=== PATIENT | male | born 1940 | race Caucasian/White ===

== ENCOUNTER 2018-01-03 13:55 | Inpatient (IN) | payer MEDICARE ==
[~2018-01-03] VITALS: Ht 167.6 cm; Wt 90.0 kg
[2018-01-03] VITALS (7 sets, daily range): BP systolic 130–198; BP diastolic 72–88; PULSE 68–101; RESP 16–20; TEMP 97.8–102.1; O2SAT 94–99
[~2018-01-03 13:55] MED LIST: CEPH500C3 PO; LISI-363 PO; LORT5TAB PO; [UNRECOGNIZED DRUG - REMARK] PO
[2018-01-03] MEDS ORDERED: LISI-515 PO (15:00)
[2018-01-03] MEDS ORDERED: TAMS5CAP PO (15:00)
[2018-01-03] MEDS ORDERED: ALLO100T PO (15:00)
[2018-01-03] MEDS ORDERED: MORPHINE SULFATE 4 MG/ML INJ IV PUSH ONE (15:15)
[2018-01-03] MEDS ORDERED: METOCLOPRAMIDE HCL 10 MG/2 ML VIAL IV PUSH ONE (15:15)
[2018-01-03] MEDS ORDERED: SODIUM CHLOR 0.9% 1000 ML INJ 1,000 ML IV ONE (15:15)
[2018-01-03 15:34] LABS: BASOPHIL # 0.1 TH/MM3 (0-0.2); BASOPHIL % 0.9 % (0.0-2.0); EOSINOPHIL # 0.2 TH/MM3 (0-0.4); EOSINOPHIL % 1.3 % (0.0-4.0); HEMATOCRIT 41.5 % (39.0-51.0); HEMOGLOBIN 13.8 GM/DL (13.0-17.0); LYMPHOCYTE # 1.6 TH/MM3 (1.0-4.8); MEAN CELL VOLUME 90.3 FL (80.0-100.0); MEAN CORPUSCULAR HEMOGLOBIN 30.1 PG (27.0-34.0); MEAN CORPUSCULAR HGB CONC 33.3 % (32.0-36.0); MEAN PLATELET VOLUME 7.9 FL (7.0-11.0); MONO % 5.9 % (0.0-8.0); MONOCYTE # 0.9 TH/MM3 (0-0.9); NEUT % 80.9 % (16.0-70.0); PLATELET COUNT 253 TH/MM3 (150-450); RED CELL DISTRIBUTION WIDTH 13.5 % (11.6-17.2); WHITE BLOOD COUNT 14.8 TH/MM3 (4.0-11.0)
[2018-01-03 16:05] LABS: ALBUMIN 3.5 GM/DL (3.4-5.0); AST (GOT) 12 U/L (15-37); BICARBONATE 24.1 MEQ/L (21.0-32.0); BLOOD UREA NITROGEN 19 MG/DL (7-18); CALCIUM 9.6 MG/DL (8.5-10.1); CHLORIDE 105 MEQ/L (98-107); GLOMERULAR FILTRATION RATE 53 ML/MIN (>89); GLUCOSE,RANDOM 112 MG/DL (74-106); SODIUM (NA) 139 MEQ/L (136-145)
--- NOTE | 2018-01-03 16:07 | PD ---
HPI Chief Complaint: GI Complaint Time Seen by Provider: 14:55 Travel History International Travel<30 days: No Contact w/Intl Traveler<30days: No Traveled to known affect area: No History of Present Illness HPI 77-year-old male the presents to the ED for evaluation of acute pancreatitis. Apparently patient was followed by Dr. Belcher who is his primary care doctor and did a CT and lab work did show acute pancreatitis and the doctor apparently told him to come here. Per patient he was just told over the phone to come here to get evaluated for his acute pancreatitis. The patient's symptoms started on Saturday. Per patient he has feeling of fullness when he eats and feels like his cannot throw up. He has has thrown up a couple times. Per patient he did throw up after having a CAT scan. Per patient he has pain on the epigastric area and the pain is 4 out of 10 but gets to be more significant. He has never had anything like this before. Still has his gallbladder. No other medical issues. Pain does not radiate. States mainly on the epigastric area. He does not really know what pancreatitis is an states that he has never had it before. He denies drinking alcohol. No other medical issues. No medication changes recently. He did not come with any blood work but does state that he had a CT scan done at [facility] today. [facility] Past Medical History High Cholesterol: Yes Diminished Hearing: No Gastrointestinal Disorders: Yes Gout: Yes Genitourinary: Yes Hypertension: Yes Medical other: Yes Immunizations Current: Yes Tetanus Vaccination: > 5 Years Influenza Vaccination: Yes Past Surgical History Abdominal Surgery: Yes (hernia) Other Surgery: Yes (bilateral inguinal hernia repair) Social History Alcohol Use: Yes (rare) Tobacco Use: No (quit 40 years ago) Substance Use: No Allergies-Medications (Allergen,Severity, Reaction): Coded Allergies: enalaprilat (Verified Allergy, Intermediate, hives, 01/03/18) Reported Meds & Prescriptions Reported Meds & Active Scripts Active Reported Amlodipine (Amlodipine Besylate) 5 Mg Tab 5 Mg PO DAILY Flomax (Tamsulosin HCl) 0.4 Mg Cap 0.4 Mg PO HS Lisinopril 20 Mg Tab 20 Mg PO DAILY Allopurinol 100 Mg Tab 100 Mg PO BID PRN Review of Systems Except as stated in HPI: all other systems reviewed are Neg Physical Exam Narrative GENERAL: SKIN: Warm and dry. HEAD: Atraumatic. Normocephalic. EYES: Pupils equal and round. No scleral icterus. No injection or drainage. ENT: No nasal bleeding or discharge. Mucous membranes pink and moist. NECK: Trachea midline. No JVD. CARDIOVASCULAR: Regular rate and rhythm. RESPIRATORY: No accessory muscle use. Clear to auscultation. Breath sounds equal bilaterally. GASTROINTESTINAL: Abdomen soft, very tender in the epigastric area, nondistended. Hepatic and splenic margins not palpable. MUSCULOSKELETAL: Extremities without clubbing, cyanosis, or edema. No obvious deformities. Full range of motion of the upper and lower extremity bilaterally. 2+ pulses bilaterally. NEUROLOGICAL: Awake and alert. No obvious cranial nerve deficits. Motor grossly within normal limits. Five out of 5 muscle strength in the arms and legs. Normal speech. PSYCHIATRIC: Appropriate mood and affect; insight and judgment normal. Data Data Last Documented VS Vital Signs Date Time Temp Pulse Resp B/P (MAP) Pulse Ox O2 Delivery O2 Flow Rate FiO2 01/03/18 15:02 16 01/03/18 14:09 98.2 91 165/72 (103) 97 Orders Orders Complete Blood Count With Diff (01/03/18 15:09) Comprehensive Metabolic Panel (01/03/18 15:09) Lipase (01/03/18 15:09) Iv Access Insert/Monitor (01/03/18 15:09) Sodium Chlor 0.9% 1000 Ml Inj (Ns 1000 M (01/03/18 15:15) Metoclopramide Inj (Reglan Inj) (01/03/18 15:15) Morphine Inj (Morphine Inj) (01/03/18 15:15) Admit To Inpatient (01/03/18 ) Code Status (01/03/18 16:36) Vital Signs (Adult) Q4H (01/03/18 16:36) Activity Oob Ad Sylwia (01/03/18 16:36) Intake + Output DANA.QSHIFT (01/03/18 16:36) Diet Npo (01/03/18 Dinner) Sodium Chloride 0.9% Flush (Ns Flush) (01/03/18 16:45) Sodium Chloride 0.9% Flush (Ns Flush) (01/03/18 21:00) Morphine Inj (Morphine Inj) (01/03/18 16:45) Lipase (01/04/18 06:00) Basic Metabolic Panel (Bmp) (01/04/18 06:00) Calcium, Ionized (01/03/18 16:36) Triglycerides (01/03/18 16:36) C-Reactive Protein (Crp) (01/03/18 16:36) Hepatic Functional Panel (01/04/18 06:00) Scd Bilateral/Knee High DANA.BID (01/03/18 16:36) Inpatient Certification (01/03/18 ) Mri Mrcp W & W/O Contrast (01/03/18 ) Consult Gastroenterology (01/03/18 ) 1/2 Ns + Kcl 20 Meq Inj (1/2 Ns + Kcl 20 (01/03/18 17:00) Hydralazine Inj (Apresoline Inj) (01/03/18 16:45) Burlap Spreader / Telemetry DANA.Q8H (01/03/18 16:43) Ondansetron Odt (Zofran Odt) (01/03/18 16:45) (Hub Use Only)Inp Phy Cons/Ref (01/03/18 ) Bedside Glucose DANA.CSUGAR (01/03/18 16:56) Blood Glucose Goal (Criteria) (01/03/18 16:56) Hypoglycemia 70 Mg/Dl Or < (01/03/18 16:56) Notify Dr: Other (01/03/18 16:56) Dextrose 50% In Adrian (Vial) Inj (D50w (Vi (01/03/18 17:00) Glucagon Inj (Glucagon Inj) (01/03/18 17:00) Insulin Aspart Supplemtl Scale (Novolog (01/03/18 17:00) Admit Order (Ed Use Only) (01/03/18 16:57) Labs Laboratory Tests Test 01/03/18 15:10 White Blood Count 14.8 TH/MM3 Red Blood Count 4.60 MIL/MM3 Hemoglobin 13.8 GM/DL Hematocrit 41.5 % Mean Corpuscular Volume 90.3 FL Mean Corpuscular Hemoglobin 30.1 PG Mean Corpuscular Hemoglobin Concent 33.3 % Red Cell Distribution Width 13.5 % Platelet Count 253 TH/MM3 Mean Platelet Volume 7.9 FL Neutrophils (%) (Auto) 80.9 % Lymphocytes (%) (Auto) 11.0 % Monocytes (%) (Auto) 5.9 % Eosinophils (%) (Auto) 1.3 % Basophils (%) (Auto) 0.9 % Neutrophils # (Auto) 12.0 TH/MM3 Lymphocytes # (Auto) 1.6 TH/MM3 Monocytes # (Auto) 0.9 TH/MM3 Eosinophils # (Auto) 0.2 TH/MM3 Basophils # (Auto) 0.1 TH/MM3 CBC Comment DIFF FINAL Differential Comment Blood Urea Nitrogen 19 MG/DL Creatinine 1.30 MG/DL Random Glucose 112 MG/DL Total Protein 8.2 GM/DL Albumin 3.5 GM/DL Calcium Level 9.6 MG/DL Alkaline Phosphatase 65 U/L Aspartate Amino Transf (AST/SGOT) 12 U/L Alanine Aminotransferase (ALT/SGPT) 23 U/L Total Bilirubin 0.5 MG/DL Sodium Level 139 MEQ/L Potassium Level 4.4 MEQ/L Chloride Level 105 MEQ/L Carbon Dioxide Level 24.1 MEQ/L Anion Gap 10 MEQ/L Estimat Glomerular Filtration Rate 53 ML/MIN Lipase 148 U/L MDM Medical Decision Making Medical Screen Exam Complete: Yes Emergency Medical Condition: Yes Medical Record Reviewed: Yes Interpretation(s) CBC Diagram 01/03/18 15:10 BMP Diagram 01/03/18 15:10 Total Protein 8.2, Albumin 3.5, Calcium Level 9.6, Alkaline Phosphatase 65, Aspartate Amino Transf (AST/SGOT) 12 L, Alanine Aminotransferase (ALT/SGPT) 23, Total Bilirubin 0.5 lipase WNL Differential Diagnosis Acute pancreatitis versus cholecystitis versus acute abdomen versus dehydration Narrative Course 77-year-old male the presents to the ED for evaluation of acute pancreatitis. Patient was properly examined and was found to have signs and symptoms consistent appears to be the medical records of the patient was able to pull out the CT scan report. Apparently the CT did show cholelithiasis with what appears to be acute pancreatitis involving the tail of the pancreas with no sign of hemorrhage or cysts. Patient is very tender to touch in the epigastric area and tells me that he cannot really keep much stuff down although he tries. He has never had anything like this before. This time because I do not have access to the [facility] blood work I will do labs to see how bad his pancreatitis is. I suspect the patient likely has back pancreatitis and will require admission. Patient will start IV fluids, pain medications and antiemetics. Labs and imaging showed elevated white blood cell count. Otherwise unremarkable. CT did show gallstones. There is concern that this might be gallstone related pancreatitis and can require further workup including surgery for the gallbladder removal. Case discussed with Dr. Bradshaw who agrees to admission. Patient was admitted. Patient agrees with plan. Diagnosis Primary Impression: Pancreatitis, acute Qualified Codes: K85.10 - Biliary acute pancreatitis without necrosis or infection Additional Impression: Abdominal pain Qualified Codes: R10.13 - Epigastric pain Admitting Information Admitting Physician Requests: Admit Jonas Mendez Jan 03, 2018 16:07
[2018-01-03 16:08] LABS: ALKALINE PHOSPHATASE 65 U/L (45-117); ALT (GPT) 23 U/L (12-78); TOTAL BILIRUBIN ADULT 0.5 MG/DL (0.2-1.0); TOTAL PROTEIN 8.2 GM/DL (6.4-8.2)
[2018-01-03] MEDS ORDERED: ONDANSETRON ODT 4 MG TAB PO PRN (16:45)
[2018-01-03] MEDS ORDERED: MORPHINE SULFATE 8 MG/ML INJ IV PUSH PRN (16:45)
[2018-01-03] MEDS ORDERED: SODIUM CHLORIDE 0.9% FLUSH 10 ML FLUSH IV FLUSH PRN (16:45)
[2018-01-03] MEDS ORDERED: hydrALAZINE HCL 20 MG/ML VIAL IV PUSH PRN (16:45)
[2018-01-03] MEDS ORDERED: AMLO5TAB2 PO (16:51)
--- NOTE | 2018-01-03 16:55 | HHI.HP ---
HPI Service [facility] Hospitalists Primary Care Physician Tray Belcher MD Admission Diagnosis Chief Complaint: Abdominal pain Travel History International Travel<30 Days: No Contact w/Intl Traveler <30 Da: No Traveled to Known Affected Are: No History of Present Illness This is a 77-year-old male patient with past medical history which includes BPH , cholelithiasis without obstruction, chronic kidney disease stage II, diabetes mellitus, diverticulosis, hypertension, hyperlipidemia and lumbar radiculopathy. Patient initially presented to his PCP office with complaints of mid abdominal pain 3 days. The abdominal pain was described as a dull ache and occasional cramping. Patient had associated nausea and occasional vomiting only after eating but no diarrhea. Patient also reports associated fever up to 101.6 at home. Patient was sent to [facility] for outpatient CT scan of the abdomen/pelvis which per PCPs note revealed acute pancreatitis of the tail the pancreas and also cholelithiasis. Patient was then instructed to proceed to the emergency department for further evaluation and treatment. Patient denies EtOH use. Patient denies chest pain or shortness of breath. Review of Systems Constitutional: COMPLAINS OF: Fever, Change in appetite (Decreased appetite) Respiratory: DENIES: Cough, Sputum production, Shortness of breath Cardiovascular: DENIES: Chest pain, Palpitations, Lower Extremity Edema Gastrointestinal: COMPLAINS OF: Abdominal pain, Nausea, Vomiting, DENIES: Diarrhea Neurologic: DENIES: Abnormal gait, Headache, Localized weakness Psychiatric: DENIES: Anxiety, Confusion, Depression Past Family Social History Past Medical History BPH, cholelithiasis without obstruction, chronic kidney disease stage II, diabetes mellitus, diverticulosis, hypertension, hyperlipidemia and lumbar radiculopathy Past Surgical History Colonoscopy, bilateral inguinal hernia repair, vasectomy, tonsillectomy with adenoidectomy,paravertebral nerve block Reported Medications Flomax (Tamsulosin HCl) 0.4 Mg Cap 0.4 Mg PO HS Lisinopril 20 Mg Tab 20 Mg PO DAILY Allopurinol 100 Mg Tab 100 Mg PO BID PRN Allergies: Coded Allergies: enalaprilat (Verified Allergy, Intermediate, hives, 01/03/18) Family History Reviewed and noncontributory Social History Denies EtOH use Former smoker Physical Exam Vital Signs Vital Signs Date Time Temp Pulse Resp B/P (MAP) Pulse Ox O2 Delivery O2 Flow Rate FiO2 01/03/18 15:02 16 01/03/18 14:09 98.2 91 16 165/72 (103 97 Physical Exam GENERAL: This is a well-nourished, well-developed patient, in no apparent distress. SKIN: No rashes, ecchymoses or lesions. Cool and dry. HEAD: Atraumatic. Normocephalic. No temporal or scalp tenderness. EYES: Extraocular motions intact. No scleral icterus. No injection or drainage. CARDIOVASCULAR: Regular rate and rhythm w RESPIRATORY: Clear to auscultation. Breath sounds equal bilaterally. GASTROINTESTINAL: Abdomen soft, tender to palpation LUQ, nondistended. MUSCULOSKELETAL: Extremities without clubbing, cyanosis, or edema. No joint tenderness, effusion, or edema noted. No calf tenderness. Negative Homans sign bilaterally. NEUROLOGICAL: Awake and alert. No focal deficits noted. Motor and sensory grossly within normal limits. Five out of 5 muscle strength in all muscle groups. Normal speech. Laboratory Laboratory Tests Test 01/03/18 15:10 White Blood Count 14.8 Red Blood Count 4.60 Hemoglobin 13.8 Hematocrit 41.5 Mean Corpuscular Volume 90.3 Mean Corpuscular Hemoglobin 30.1 Mean Corpuscular Hemoglobin Concent 33.3 Red Cell Distribution Width 13.5 Platelet Count 253 Mean Platelet Volume 7.9 Neutrophils (%) (Auto) 80.9 Lymphocytes (%) (Auto) 11.0 Monocytes (%) (Auto) 5.9 Eosinophils (%) (Auto) 1.3 Basophils (%) (Auto) 0.9 Neutrophils # (Auto) 12.0 Lymphocytes # (Auto) 1.6 Monocytes # (Auto) 0.9 Eosinophils # (Auto) 0.2 Basophils # (Auto) 0.1 CBC Comment DIFF FINAL Differential Comment Blood Urea Nitrogen 19 Creatinine 1.30 Random Glucose 112 Total Protein 8.2 Albumin 3.5 Calcium Level 9.6 Alkaline Phosphatase 65 Aspartate Amino Transf (AST/SGOT) 12 Alanine Aminotransferase (ALT/SGPT) 23 Total Bilirubin 0.5 Sodium Level 139 Potassium Level 4.4 Chloride Level 105 Carbon Dioxide Level 24.1 Anion Gap 10 Estimat Glomerular Filtration Rate 53 Lipase 148 Result Diagram: 01/03/18 1510 01/03/18 1510 Imaging Last Impressions Chest X-Ray 01/03/18 0000 Signed Impressions: CONCLUSION: Minimal atelectasis or consolidation at the lateral left base. Questionable density in the medial right upper lung. This could be further eval uated with a CT examination the chest. Caprini VTE Risk Assessment Caprini VTE Risk Assessment: Mod/High Risk (score >= 2) Caprini Risk Assessment Model Point Value = 1 Point Value = 2 Point Value = 3 Point Value = 5 Age 41-60 Minor surgery BMI > 25 kg/m2 Swollen legs Varicose veins or History of unexplained or recurrent spontaneous Oral contraceptives or hormone replacement Sepsis (< 1 month) Serious lung disease, including pneumonia (< 1 month) Abnormal pulmonary function Acute myocardial infarction Congestive heart failure (< 1 month) History of inflammatory bowel disease Medical patient at bed rest Age 61-74 Arthroscopic surgery Major open surgery (> 45 min) Laparoscopic surgery (> 45 min) Malignancy Confined to bed (> 72 hours) Immobilizing plaster cast Central venous access Age >= 75 History of VTE Family history of VTE Factor V Leiden Prothrombin [id number] Lupus anticoagulant Anticardiolipin antibodies Elevated serum homocysteine Heparin-induced thrombocytopenia Other congenital or acquired thrombophilia Stroke (< 1 month) Elective arthroplasty Hip, pelvis, or leg fracture Acute spinal cord injury (< 1 month) Prophylaxis Regimen Total Risk Factor Score Risk Level Prophylaxis Regimen 0-1 Low Early ambulation 2 Moderate Order ONE of the following: *Sequential Compression Device (SCD) *Heparin 5000 units SQ BID 3-4 Higher Order ONE of the following medications: *Heparin 5000 units SQ TID *Enoxaparin/Lovenox 40 mg SQ daily (WT < 150 kg, CrCl > 30 mL/min) *Enoxaparin/Lovenox 30 mg SQ daily (WT < 150 kg, CrCl > 10-29 mL/min) *Enoxaparin/Lovenox 30 mg SQ BID (WT < 150 kg, CrCl > 30 mL/min) AND/OR *Sequential Compression Device (SCD) 5 or more Highest Order ONE of the following medications: *Heparin 5000 units SQ TID (Preferred with Epidurals) *Enoxaparin/Lovenox 40 mg SQ daily (WT < 150 kg, CrCl > 30 mL/min) *Enoxaparin/Lovenox 30 mg SQ daily (WT < 150 kg, CrCl > 10-29 mL/min) *Enoxaparin/Lovenox 30 mg SQ BID (WT < 150 kg, CrCl > 30 mL/min) AND *Sequential Compression Device (SCD) Assessment and Plan Problem List: (1) Abdominal pain ICD Codes: R10.9 - Unspecified abdominal pain Plan: Pancreatitis Cholelithiasis CT scan of the abdomen/pelvis which per PCPs note revealed acute pancreatitis of the tail the pancreas and also cholelithiasis. MRCP ordered and pending consult GI Patient NPO IV fluids Lipase 148 Creactive protein, Calcium pending Repeat Lipase, CMP and CBC in a.m. SCDs for DVT prophylaxis (2) Diabetes mellitus ICD Codes: E11.9 - Type 2 diabetes mellitus without complications Plan: Patient currently n.p.o. Accu-Cheks before meals at bedtime with sliding scale insulin coverage (3) Hypertension ICD Codes: I10 - Essential (primary) hypertension Plan: Patient NPO will hold patient's home amlodipine 5 mg p.o. daily, lisinopril 20 mg daily Monitor BP Hydralazine 10 mg IV as needed for HTN (4) BPH (benign prostatic hyperplasia) ICD Codes: N40.0 - Benign prostatic hyperplasia without lower urinary tract symptoms Plan: Patient NPO will hold patient's allopurinol 100 mg p.o. twice daily Assessment and Plan Patient examined. Assessment and plan formulated with Claudia Manjarrez PA-C. I agree with the above. Problem Qualifiers (1) Abdominal pain: Qualified Codes: R10.13 - Epigastric pain Claudia Manjarrez Jan 03, 2018 16:55 Riley Bradshaw DO Jan 04, 2018 15:52
[2018-01-03] MEDS: INSULIN ASPART SUPPLEMENTAL SCALE SQ SCH ×2 (17:00→21:00)
[2018-01-03] MEDS ORDERED: GLUCAGON 1 MG/ML VIAL OTHER PRN (17:00)
[2018-01-03] MEDS ORDERED: DEXTROSE 50% IN WATER 50 ML VIAL(D50) IV PUSH PRN (17:00)
[2018-01-03] MEDS: 1/2 NS + KCL 20 MEQ INJ 1,000 ML IV SCH (17:15)
[2018-01-03] MEDS ORDERED: METOPROLOL TARTRATE 5 MG/5 ML VIAL IV PUSH PRN (17:15)
[2018-01-03 17:42] LABS: BACTERIA, URINE OCC /hpf; BILIRUBIN, URINE NEG (NEG); BLOOD, URINE NEG (NEG); GLUCOSE,URINE NEG (NEG); HYALINE CAST, URINE 4 /lpf (RARE); KETONE, URINE TRACE mg/dL (NEG); MUCUS URINE FEW /lpf (OCC); NITRITE,URINE NEG (NEG); SQUAMOUS EPITHELIAL CELL URINE <1 /hpf (0-5); URINE COLOR YELLOW (YELLW/STRAW); URINE LEUKOCYTE ESTERASE TRACE (NEG)
--- NOTE | 2018-01-03 17:42 | RADRPT ---
EXAM DATE: 01/03/2018 5:24 PM EDT AGE/SEX: 77 years / Male INDICATIONS: Cough. Abdomen pain. CLINICAL DATA: This is the patient's initial encounter. Patient reports that signs and symptoms have been present for 1 day and indicates a pain score of 0/10. MEDICAL/SURGICAL HISTORY: None. None. COMPARISON: No prior exams available for comparison. FINDINGS: The heart size is normal. There is elevation of the left hemidiaphragm. There is minimal increased de nsity at the left lateral base. The lungs are focal consolidation. There is a questionable nodule see n in the medial right upper lobe. Confluent of vessels could have a similar appearance.. CONCLUSION: Minimal atelectasis or consolidation at the lateral left base. Questionable density in the medial right upper lung. This could be further evaluated with a CT examin ation the chest. Electronically signed by: Vito Pineda MD 01/03/2018 5:41 PM EDT
--- NOTE | 2018-01-03 18:02 | PD ---
Data Data Last Documented VS Vital Signs Date Time Temp Pulse Resp B/P (MAP) Pulse Ox O2 Delivery O2 Flow Rate FiO2 01/03/18 17:06 98.0 68 17 156/72 (100) 99 Room Air Orders Orders Complete Blood Count With Diff (01/03/18 15:09) Comprehensive Metabolic Panel (01/03/18 15:09) Lipase (01/03/18 15:09) Iv Access Insert/Monitor (01/03/18 15:09) Sodium Chlor 0.9% 1000 Ml Inj (Ns 1000 M (01/03/18 15:15) Metoclopramide Inj (Reglan Inj) (01/03/18 15:15) Morphine Inj (Morphine Inj) (01/03/18 15:15) Admit To Inpatient (01/03/18 ) Code Status (01/03/18 16:36) Vital Signs (Adult) Q4H (01/03/18 16:36) Activity Oob Ad Sylwia (01/03/18 16:36) Intake + Output DANA.QSHIFT (01/03/18 16:36) Diet Npo (01/03/18 Dinner) Sodium Chloride 0.9% Flush (Ns Flush) (01/03/18 16:45) Sodium Chloride 0.9% Flush (Ns Flush) (01/03/18 21:00) Morphine Inj (Morphine Inj) (01/03/18 16:45) Lipase (01/04/18 06:00) Basic Metabolic Panel (Bmp) (01/04/18 06:00) Calcium, Ionized (01/03/18 16:36) Triglycerides (01/03/18 16:36) C-Reactive Protein (Crp) (01/03/18 16:36) Hepatic Functional Panel (01/04/18 06:00) Scd Bilateral/Knee High DANA.BID (01/03/18 16:36) Inpatient Certification (01/03/18 ) Consult Gastroenterology (01/03/18 ) 1/2 Ns + Kcl 20 Meq Inj (1/2 Ns + Kcl 20 (01/03/18 17:00) Hydralazine Inj (Apresoline Inj) (01/03/18 16:45) Head Of Loss Prevention / Telemetry DANA.Q8H (01/03/18 16:43) Ondansetron Odt (Zofran Odt) (01/03/18 16:45) (Hub Use Only)Inp Phy Cons/Ref (01/03/18 ) Bedside Glucose DANA.CSUGAR (01/03/18 16:56) Blood Glucose Goal (Criteria) (01/03/18 16:56) Hypoglycemia 70 Mg/Dl Or < (01/03/18 16:56) Notify Dr: Other (01/03/18 16:56) Dextrose 50% In Adrian (Vial) Inj (D50w (Vi (01/03/18 17:00) Glucagon Inj (Glucagon Inj) (01/03/18 17:00) Insulin Aspart Supplemtl Scale (Novolog (01/03/18 17:00) Admit Order (Ed Use Only) (01/03/18 16:57) Metoprolol Tartrate Inj (Lopressor Inj) (01/03/18 17:15) Complete Blood Count With Diff (01/04/18 06:00) Urinalysis - C+S If Indicated (01/03/18 17:03) Chest, Single Ap (01/03/18 ) Mri Mrcp W/O Contrast (01/03/18 ) Labs Laboratory Tests Test 01/03/18 15:10 White Blood Count 14.8 TH/MM3 Red Blood Count 4.60 MIL/MM3 Hemoglobin 13.8 GM/DL Hematocrit 41.5 % Mean Corpuscular Volume 90.3 FL Mean Corpuscular Hemoglobin 30.1 PG Mean Corpuscular Hemoglobin Concent 33.3 % Red Cell Distribution Width 13.5 % Platelet Count 253 TH/MM3 Mean Platelet Volume 7.9 FL Neutrophils (%) (Auto) 80.9 % Lymphocytes (%) (Auto) 11.0 % Monocytes (%) (Auto) 5.9 % Eosinophils (%) (Auto) 1.3 % Basophils (%) (Auto) 0.9 % Neutrophils # (Auto) 12.0 TH/MM3 Lymphocytes # (Auto) 1.6 TH/MM3 Monocytes # (Auto) 0.9 TH/MM3 Eosinophils # (Auto) 0.2 TH/MM3 Basophils # (Auto) 0.1 TH/MM3 CBC Comment DIFF FINAL Differential Comment Blood Urea Nitrogen 19 MG/DL Creatinine 1.30 MG/DL Random Glucose 112 MG/DL Total Protein 8.2 GM/DL Albumin 3.5 GM/DL Calcium Level 9.6 MG/DL Alkaline Phosphatase 65 U/L Aspartate Amino Transf (AST/SGOT) 12 U/L Alanine Aminotransferase (ALT/SGPT) 23 U/L Total Bilirubin 0.5 MG/DL Sodium Level 139 MEQ/L Potassium Level 4.4 MEQ/L Chloride Level 105 MEQ/L Carbon Dioxide Level 24.1 MEQ/L Anion Gap 10 MEQ/L Estimat Glomerular Filtration Rate 53 ML/MIN Lipase 148 U/L MDM Supervised Visit with CASSANDRA: Yes Narrative Course I, Dr. Chino, have reviewed the advance practice practitioner's documentation and am in agreement, met with the patient face to face, made the diagnosis, and the medical decision making was done by me. *My assessment and Findings: Patient was sent here for hospitalization to evaluate for acute pancreatitis. They had an outpatient CT scan showing inflamed pancreas. Curiously, lipase is normal. Diagnosis Primary Impression: Pancreatitis, acute Qualified Codes: K85.10 - Biliary acute pancreatitis without necrosis or infection Additional Impression: Abdominal pain Qualified Codes: R10.13 - Epigastric pain Abad Chino MD Jan 03, 2018 18:02
--- NOTE | 2018-01-03 19:28 | RADRPT ---
EXAM DATE: 01/03/2018 6:51 PM EDT AGE/SEX: 77 years / Male INDICATIONS: Abdominal pain. CLINICAL DATA: This is the patient's initial encounter. Patient reports that signs and symptoms have been present for 2 days and indicates a pain score of 6/10. MEDICAL/SURGICAL HISTORY: . Chronic Kidney Stage 3 Inguinal hernia repair. COMPARISON: No prior exams available for comparison. TECHNIQUE: Multiplanar, multisequence images of the abdomen were obtained without contrast including dedicated cholangiographic images. FINDINGS: The liver and spleen are normal in size and no focal defects are identified. There are multiple gall stones within the gallbladder without wall thickening or pericholecystic fluid the largest measuring 3 mm Examination of biliary tree with multiplanar and 3-D reconstruction demonstrates no evidence of common duct stone. No intrahepatic or extra hepatic ductal dilatation is identified. The pancreatic d uct is unremarkable. The adrenal glands and kidneys appear normal bilaterally. No hydronephrosis or mass lesions are identified. No abnormally enlarged lymph nodes are identified. CONCLUSION: 1. Cholelithiasis. No evidence of common duct stone Electronically signed by: Lawrence Agustin MD 01/03/2018 7:27 PM EDT
[2018-01-03] MEDS: SODIUM CHLORIDE 0.9% FLUSH 10 ML FLUSH IV FLUSH SCH (21:25)
[2018-01-03] MEDS: ACETAMINOPHEN 1000 MG/100 ML 100 ML IV PRN (22:10)
[2018-01-04] VITALS (7 sets, daily range): BP systolic 126–180; BP diastolic 59–88; PULSE 67–87; RESP 16–20; TEMP 97.2–99.8; O2SAT 93–98
[2018-01-04] MEDS: PIPERACIL-TAZO 3.375 GM PREMIX 50 ML IV SCH ×5 (00:17→22:16)
[2018-01-04] MEDS: 1/2 NS + KCL 20 MEQ INJ 1,000 ML IV SCH ×2 (04:10→19:28)
[2018-01-04 06:46] LABS: AUTOMATED NEUTROPHIL # 8.3 TH/MM3 (1.8-7.7); BASOPHIL # 0.1 TH/MM3 (0-0.2); BASOPHIL % 0.5 % (0.0-2.0); EOSINOPHIL # 0.3 TH/MM3 (0-0.4); EOSINOPHIL % 2.5 % (0.0-4.0); HEMATOCRIT 35.8 % (39.0-51.0); LYMPH % 17.8 % (9.0-44.0); MEAN CORPUSCULAR HEMOGLOBIN 30.1 PG (27.0-34.0); MEAN CORPUSCULAR HGB CONC 33.4 % (32.0-36.0); MONO % 6.5 % (0.0-8.0); MONOCYTE # 0.7 TH/MM3 (0-0.9); NEUT % 72.7 % (16.0-70.0); PLATELET COUNT 244 TH/MM3 (150-450); RED BLOOD COUNT 3.98 MIL/MM3 (4.50-5.90); RED CELL DISTRIBUTION WIDTH 13.5 % (11.6-17.2); WHITE BLOOD COUNT 11.4 TH/MM3 (4.0-11.0)
[2018-01-04 07:52] LABS: ALBUMIN 2.9 GM/DL (3.4-5.0); BICARBONATE 22.1 MEQ/L (21.0-32.0); CALCIUM 8.6 MG/DL (8.5-10.1); CREATININE 1.23 MG/DL (0.60-1.30); DIRECT BILIRUBIN ADULT 0.2 MG/DL (0.0-0.2); INDIRECT BILIRUBIN 0.6 MG/DL (0.0-0.8); TOTAL BILIRUBIN ADULT 0.8 MG/DL (0.2-1.0); TOTAL PROTEIN 6.7 GM/DL (6.4-8.2)
[2018-01-04] MEDS: INSULIN ASPART SUPPLEMENTAL SCALE SQ SCH ×4 (08:00→19:26)
[2018-01-04] MEDS: SODIUM CHLORIDE 0.9% FLUSH 10 ML FLUSH IV FLUSH SCH ×2 (10:21→19:24)
--- NOTE | 2018-01-04 10:36 | PD.CONS ---
HPI History of Present Illness This is a 77 year old male with hx of BPH, cholelithiasis, chronic kidney disease stage II, diabetes mellitus, diverticulosis, hypertension, hyperlipidemia and lumbar radiculopathy who was advised to go to the ED for abnormal imaging done as an OP for abd pain associated with fever. Endorses upper abd pain with radiation to the back started on Saturday followed by fever the next day. He didn't have apatite to eat, food made him sick and made the pain worse. Patient was sent to [facility] for outpatient CT scan of the abdomen/pelvis which by report revealed acute pancreatitis of the tail the pancreas and cholelithiasis. Patient denies EtOH use. No new medications. States, he takes 2 Advil at night to help with sleep for long time. No previous hx of pancreatitis. Labs revealed leukocytosis, normal LFTs and normal Lipase. Last EGD/colonoscopy by report about 3 yrs ago. MRCP done, no evidence of CBD stones. Pt is comfortable in bed, pain is better. (Carmela Meza) PFSH Past Medical History BPH, cholelithiasis without obstruction, chronic kidney disease stage II, diabetes mellitus, diverticulosis, hypertension, hyperlipidemia and lumbar radiculopathy Past Surgical History EGD/Colonoscopy, bilateral inguinal hernia repair, vasectomy, tonsillectomy with adenoidectomy,paravertebral nerve block (Carmela Meza) Coded Allergies: enalaprilat (Verified Allergy, Intermediate, hives, 01/03/18) Medications Current Medications Medications (Trade) Dose Ordered Sig/April Route Start Time Stop Time Status Last Admin (NS Flush) 2 ml UNSCH PRN IV FLUSH 01/03/18 16:45 (NS Flush) 2 ml BID IV FLUSH 01/03/18 21:00 01/03/18 21:25 (Morphine Inj) 5 mg Q3H PRN IV PUSH 01/03/18 16:45 01/03/18 21:24 (Zofran Odt) 4 mg Q6H PRN PO 01/03/18 16:45 Potassium Chloride/Sodium Chloride 1,000 ml @ 84 mls/hr [id number] IV 01/03/18 17:00 01/04/18 04:10 (D50w (Vial) Inj) 50 ml UNSCH PRN IV PUSH 01/03/18 17:00 (Glucagon Inj) 1 mg UNSCH PRN OTHER 01/03/18 17:00 (NovoLOG SUPPLEMENTAL SCALE) 1 ACHS SLIDING SCALE SQ 01/03/18 17:00 (Lopressor Inj) 2.5 mg Q6H PRN IV PUSH 01/03/18 17:15 Piperacillin Sod/ Tazobactam Sod 50 ml @ 100 mls/hr Q6H IV 01/03/18 22:00 01/04/18 04:10 Acetaminophen 100 ml @ 400 mls/hr Q6H PRN IV 01/03/18 22:00 01/03/18 22:10 Family History No family hx of pancreatitis Social History No alcohol intake former smoker (Carmela Meza) Review of Systems Constitutional: COMPLAINS OF: Fever Endocrine: DENIES: Polyuria Eyes: DENIES: Double Vision Ears, nose, mouth, throat: DENIES: Hoarseness Respiratory: DENIES: Shortness of breath Cardiovascular: DENIES: Lower Extremity Edema Gastrointestinal: COMPLAINS OF: Abdominal pain, Nausea, Anorexia, DENIES: Black stools, Bloody stools, Constipation, Diarrhea, Difficulty Swallowing, Odynophagia, Swelling of Abdomen, Heartburn, Hematemesis Genitourinary: DENIES: Hematuria Musculoskeletal: DENIES: Back pain Integumentary: DENIES: Jaundice Hematologic/lymphatic: DENIES: Bruising Neurologic: DENIES: Abnormal gait Psychiatric: DENIES: Anxiety (Carmela Meza) GI Exam Vitals I&O Vital Signs Date Time Temp Pulse Resp B/P (MAP) Pulse Ox O2 Delivery O2 Flow Rate FiO2 01/04/18 04:00 97.7 71 18 149/71 (97) 94 01/04/18 00:00 99.8 86 20 126/59 (81) 93 01/03/18 23:50 87 01/03/18 22:29 98.4 92 20 157/72 (100) 94 01/03/18 22:21 91 01/03/18 20:00 102.1 101 20 198/88 (124) 94 01/03/18 18:30 97.8 68 16 130/76 (94) 99 01/03/18 17:06 98.0 68 17 156/72 (100) 99 Room Air 01/03/18 15:02 16 01/03/18 14:09 98.2 91 16 165/72 (103) 97 I/O 01/03/18 01/03/18 01/03/18 01/04/18 01/04/18 01/04/18 06:59 14:59 22:59 06:59 14:59 22:59 Intake Total 1200 ml Output Total 300 ml Balance -300 ml 1200 ml Intake Oral 0 ml IV Total 1200 ml Output Urine Total 300 ml # Voids 1 2 # Bowel Movements 0 Imaging Last Impressions Cholangiopancreatography MRI 01/03/18 0000 Signed Impressions: CONCLUSION: 1. Cholelithiasis. No evidence of common duct stone Chest X-Ray 01/03/18 0000 Signed Impressions: CONCLUSION: Minimal atelectasis or consolidation at the lateral left base. Questionable density in the medial right upper lung. This could be further eval uated with a CT examination the chest. Laboratory Test 01/03/18 15:10 01/03/18 17:20 01/03/18 21:40 01/04/18 05:35 White Blood Count 14.8 TH/MM3 11.4 TH/MM3 Red Blood Count 4.60 MIL/MM3 3.98 MIL/MM3 Hemoglobin 13.8 GM/DL 12.0 GM/DL Hematocrit 41.5 % 35.8 % Mean Corpuscular Volume 90.3 FL 90.0 FL Mean Corpuscular Hemoglobin 30.1 PG 30.1 PG Mean Corpuscular Hemoglobin Concent 33.3 % 33.4 % Red Cell Distribution Width 13.5 % 13.5 % Platelet Count 253 TH/MM3 244 TH/MM3 Mean Platelet Volume 7.9 FL 8.0 FL Neutrophils (%) (Auto) 80.9 % 72.7 % Lymphocytes (%) (Auto) 11.0 % 17.8 % Monocytes (%) (Auto) 5.9 % 6.5 % Eosinophils (%) (Auto) 1.3 % 2.5 % Basophils (%) (Auto) 0.9 % 0.5 % Neutrophils # (Auto) 12.0 TH/MM3 8.3 TH/MM3 Lymphocytes # (Auto) 1.6 TH/MM3 2.0 TH/MM3 Monocytes # (Auto) 0.9 TH/MM3 0.7 TH/MM3 Eosinophils # (Auto) 0.2 TH/MM3 0.3 TH/MM3 Basophils # (Auto) 0.1 TH/MM3 0.1 TH/MM3 CBC Comment DIFF FINAL DIFF FINAL Differential Comment Blood Urea Nitrogen 19 MG/DL 17 MG/DL Creatinine 1.30 MG/DL 1.23 MG/DL Random Glucose 112 MG/DL 114 MG/DL Total Protein 8.2 GM/DL 6.7 GM/DL Albumin 3.5 GM/DL 2.9 GM/DL Calcium Level 9.6 MG/DL 8.6 MG/DL Alkaline Phosphatase 65 U/L 61 U/L Aspartate Amino Transf (AST/SGOT) 12 U/L 14 U/L Alanine Aminotransferase (ALT/SGPT) 23 U/L 19 U/L Total Bilirubin 0.5 MG/DL 0.8 MG/DL Sodium Level 139 MEQ/L 141 MEQ/L Potassium Level 4.4 MEQ/L 3.8 MEQ/L Chloride Level 105 MEQ/L 108 MEQ/L Carbon Dioxide Level 24.1 MEQ/L 22.1 MEQ/L Anion Gap 10 MEQ/L 11 MEQ/L Estimat Glomerular Filtration Rate 53 ML/MIN 57 ML/MIN C-Reactive Protein 19.00 MG/DL Triglycerides Level 196 MG/DL Lipase 148 U/L 133 U/L Urine Color YELLOW Urine Turbidity HAZY Urine pH 5.0 Urine Specific [place] 1.009 Urine Protein NEG mg/dL Urine Glucose (UA) NEG mg/dL Urine Ketones TRACE mg/dL Urine Occult Blood NEG Urine Nitrite NEG Urine Bilirubin NEG Urine Urobilinogen LESS THAN 2 mg/dL Urine Leukocyte Esterase TRACE Urine RBC 2 /hpf Urine WBC 4 /hpf Urine Squamous Epithelial Cells <1 /hpf Urine Bacteria OCC /hpf Urine Hyaline Casts 4 /lpf Urine Mucus FEW /lpf Microscopic Urinalysis Comment CULT NOT INDICATED Direct Bilirubin 0.2 MG/DL Indirect Bilirubin 0.6 MG/DL Date/Time Source Procedure Growth Status 01/03/18 21:40 Blood Peripheral Aerobic Blood Culture Pending Received 01/03/18 21:40 Blood Peripheral Anaerobic Blood Culture Pending Received Physical Examination HEENT: Pupils round and reactive to light; normocephalic; atraumatic; no jaundice. Throat is clear. CHEST: Chest is clear to auscultation and percussion. CARDIAC: Regular rate and rhythm with no murmur gallop or rubs. ABDOMEN: Soft, nondistended,mild upper abd pain ; no hepatosplenomegaly; bowel sounds are present in all four quadrants. EXTREMITIES: No clubbing, cyanosis, or edema. SKIN: Normal; no rash; no jaundice. PSYCHODRAMATIST: No focal deficits; alert and oriented times three. (Carmela Meza) Assessment and Plan Plan - Acute pancreatitis - Unknown etiology, ? gall bladder or gastric ulcer. CT scan of the abdomen/pelvis which by report revealed acute pancreatitis of the tail the pancreas and cholelithiasis. Patient denies EtOH use. No new medications. States, he takes 2 Advil at night to help with sleep for long time. No previous hx of pancreatitis. Labs revealed leukocytosis, normal LFTs and normal Lipase. Last EGD/ colonoscopy by report about 3 yrs ago. MRCP done, no evidence of CBD stones. Pt is comfortable in bed, pain is better. - BPH, cholelithiasis, chronic kidney disease stage II, diabetes mellitus, hypertension, hyperlipidemia per attending Plan: - Clear liquid diet - HIDA scan - Pt might need EGD/EUS but can be done as an OP - Avoid NSAIDs - Pt seen and examined by Dr. Valadez and myself and this note is written on her behalf. (Carmela Meza) Physician Comments seen, examined agree with above (Norma Valadez MD) Carmela Meza Jan 04, 2018 10:36 Norma Valadez MD Jan 04, 2018 20:40
[2018-01-04] MEDS: ACETAMINOPHEN 1000 MG/100 ML 100 ML IV PRN (10:57)
[2018-01-04] MEDS ORDERED: SINCALIDE 5 MCG/5 ML VIAL IV ONE (13:11)
--- NOTE | 2018-01-04 13:53 | RADRPT ---
EXAM DATE: 01/04/2018 1:50 PM EDT AGE/SEX: 77 years / Male INDICATIONS: Pancreatitis. Abdominal pain. CLINICAL DATA: This is the patient's initial encounter. Patient reports that signs and symptoms have been present for 1 day and indicates a pain score of 5/10. MEDICAL/SURGICAL HISTORY: Diabetes mellitus type II. Renal failure, chronic. Hypertension. In guinal hernia repair. Tonsillectomy. COMPARISON: No prior exams available for comparison. DOSE: 4.1 mCi Tc-99m mebrofenin i.v. Medication: 1.8 mcg Cholecystokinin IV No symptomatic response Cholecystokinin was administered by slow infusion over 8 minutes beginning at 60 minutes. TECHNIQUE: Following the intravenous administration of radiotracer, dynamic sequential images were pe rformed with continuous acquisition. Time-activity curves were generated. FINDINGS: Hepatic Kinetics: There is prompt uptake of radiotracer in the liver. No focal defects are seen. Ther e is normal rate of washout from the hepatic parenchyma. Biliary Clearance: Activity is first seen in the extrahepatic biliary system at 10 minutes. There is normal excretion into the small bowel. Gallbladder: Activity is first seen in the gallbladder at 15 minutes. Post-CCK: After CCK administration, there is emptying of the gallbladder with a 10-15% ejection fract ion. Common bile duct kinetics are normal and there is no evidence of biliary obstruction. No sympto matic response after cholecystokinin infusion. Biliary-Enteric Reflux: None observed. CONCLUSION: 1. Normal gallbladder uptake. 2. Poor ejection fraction. Electronically signed by: Keanu Pruitt MD 01/04/2018 1:51 PM EDT
--- NOTE | 2018-01-04 15:54 | HHI.PR ---
Subjective Remarks nausea/vomiting improved. No fever today. Objective Vitals Vital Signs Date Time Temp Pulse Resp B/P (MAP) Pulse Ox O2 Delivery O2 Flow Rate FiO2 01/04/18 11:59 98.2 72 16 132/63 (86) 98 01/04/18 08:00 97.9 67 18 180/74 (109) 96 01/04/18 04:00 97.7 71 18 149/71 (97) 94 01/04/18 00:00 99.8 86 20 126/59 (81) 93 01/03/18 23:50 87 01/03/18 22:29 98.4 92 20 157/72 (100) 94 01/03/18 22:21 91 01/03/18 20:00 102.1 101 20 198/88 (124) 94 01/03/18 18:30 97.8 68 16 130/76 (94) 99 01/03/18 17:06 98.0 68 17 156/72 (100) 99 Room Air Result Diagram: 01/04/18 0535 01/04/18 0535 Imaging Last Impressions Hepatobiliary Scan Nuclear Medicine 01/04/18 0000 Signed Impressions: CONCLUSION: 1. Normal gallbladder uptake. 2. Poor ejection fraction. Cholangiopancreatography MRI 01/03/18 0000 Signed Impressions: CONCLUSION: 1. Cholelithiasis. No evidence of common duct stone Chest X-Ray 01/03/18 0000 Signed Impressions: CONCLUSION: Minimal atelectasis or consolidation at the lateral left base. Questionable density in the medial right upper lung. This could be further eval uated with a CT examination the chest. Objective Remarks GENERAL: This is a well-nourished, well-developed patient, in no apparent distress. CARDIOVASCULAR: Regular rate and rhythm without murmurs, gallops, or rubs. RESPIRATORY: Clear to auscultation. Breath sounds equal bilaterally. No wheezes , rales, or rhonchi. GASTROINTESTINAL: Abdomen soft, non-tender, nondistended. Normal active bowel sounds MUSCULOSKELETAL: Extremities without clubbing, cyanosis, or edema. NEURO: Alert & Oriented x4 to person, place, time, situation. Moves all ext x4 A/P Problem List: (1) Abdominal pain ICD Codes: R10.9 - Unspecified abdominal pain Plan: Pancreatitis Cholelithiasis - comgmt with GI - CT scan of the abdomen/pelvis (01/03) at [facility] which per PCPs note revealed acute pancreatitis of the tail the pancreas and also cholelithiasis. - MRCP (01/04) --> no acute findings - HIDA (01/04) --> EF 15% - GB US (01/04) --> multiple gallstone, no ductal dilation - lipase 148 (01/03) - CRP 19 (01/03) - calcium 8.6 - clear diet after GB US - cholecystitis? - IV Zosyn (01/03 - present) - Blood Cx (01/03) --> NGTD - SCDs for DVT prophylaxis (2) Diabetes mellitus ICD Codes: E11.9 - Type 2 diabetes mellitus without complications Status: Chronic Plan: - diet controlled - SSI (3) Hypertension ICD Codes: I10 - Essential (primary) hypertension Plan: - resumed home amlodipine 5 mg p.o. daily - likely will resume 01/05 lisinopril 20 mg daily Monitor BP Hydralazine 10 mg IV as needed for HTN (4) BPH (benign prostatic hyperplasia) ICD Codes: N40.0 - Benign prostatic hyperplasia without lower urinary tract symptoms Status: Chronic Plan: - resume flomax Problem Qualifiers (1) Abdominal pain: Qualified Codes: R10.13 - Epigastric pain (2) Diabetes mellitus: Riley Bradshaw DO Jan 04, 2018 15:54
[2018-01-04] MEDS ORDERED: amLODIPine BESYLATE 5 MG TAB PO ONE (16:15)
[2018-01-04] MEDS: TAMSULOSIN HCL 0.4 MG CAP PO SCH (19:25)
--- NOTE | 2018-01-04 20:09 | RADRPT ---
EXAM DATE: 01/04/2018 7:56 PM EDT AGE/SEX: 77 years / Male INDICATIONS: Nausea and vomiting with abnormal CT and HIDA scan. Evaluate for cholecystitis. CLINICAL DATA: This is the patient's initial encounter. Patient reports that signs and/or symptoms h ave been present for 4 - 6 days and indicates a pain score of 1/10. MEDICAL/SURGICAL HISTORY: Hypercholesterolemia. Hypertension. Hiatal hernia. Kidney Stones. Gal lstones. Enlarged Prostate. Arthritis. Gout. Pre-Diabetic. Renal failure, chronic. Tonsillectom y. Hernia Surgery x 2. COMPARISON: No prior exams available for comparison. MEASUREMENTS: Liver:__ 14.5 cm. Common Bile Duct:__ 5mm. FINDINGS: Liver: Increased echotexture without focal lesion or ductal dilation. Portal Vein: Hepatopedal flow seen in portal vein. Common Duct: No intraluminal mass or stone visualized. Gallbladder: Demonstrates no wall thickening or pericholecystic fluid. Stones visualized. Pancreas: Not well visualized. Right Kidney: Normal echotexture and cortical thickness. No mass or hydronephrosis. Other: None. CONCLUSION: 1. Multiple gallstones measuring up to 7 mm in diameter. No biliary ductal dilatation. Fatty liver. No free fluid. Pancreas not well visualized. Electronically signed by: Jose Pena MD 01/04/2018 8:08 PM EDT
[2018-01-04] MEDS ORDERED: TEMAZEPAM 15 MG CAP PO PRN (22:00)
[2018-01-05] VITALS (9 sets, daily range): BP systolic 120–164; BP diastolic 61–75; PULSE 74–108; RESP 17–18; TEMP 97.8–99.5; O2SAT 96–97
[2018-01-05] MEDS: PIPERACIL-TAZO 3.375 GM PREMIX 50 ML IV SCH ×2 (04:13→09:53)
[2018-01-05] MEDS: 1/2 NS + KCL 20 MEQ INJ 1,000 ML IV SCH ×2 (04:45→11:48)
[2018-01-05] MEDS: INSULIN ASPART SUPPLEMENTAL SCALE SQ SCH ×4 (08:00→19:50)
[2018-01-05] MEDS: amLODIPine BESYLATE 5 MG TAB PO SCH (08:02)
[2018-01-05] MEDS: SODIUM CHLORIDE 0.9% FLUSH 10 ML FLUSH IV FLUSH SCH ×2 (08:03→21:00)
--- NOTE | 2018-01-05 11:01 | HHI.GIFU ---
Subjective Remarks Resting in the bed denies any nausea or vomiting Tolerating clear liquids no current abdominal pain Patient is hoping to go home soon has a family wedding planned and travel for Saturday (Maryan Viadl) Objective Vitals I&O Vital Signs Date Time Temp Pulse Resp B/P (MAP) Pulse Ox O2 Delivery O2 Flow Rate FiO2 01/05/18 08:00 98.1 79 17 156/73 (100) 96 01/05/18 04:29 98.6 79 18 147/67 (93) 97 01/05/18 04:00 108 01/05/18 00:05 99.5 86 18 133/61 (85) 96 01/05/18 00:00 83 01/04/18 20:22 98.8 79 18 160/77 (104) 97 01/04/18 20:00 79 01/04/18 16:00 97.2 87 19 129/88 (102) 98 01/04/18 11:59 98.2 72 16 132/63 (86) 98 I/O 01/04/18 01/04/18 01/04/18 01/05/18 01/05/18 01/05/18 06:59 14:59 22:59 06:59 14:59 22:59 Intake Total 1200 ml 50 ml 1500 ml 630 ml Output Total 4 ml Balance 1200 ml 50 ml 1496 ml 630 ml Intake Oral 0 ml 400 ml 580 ml IV Total 1200 ml 50 ml 1100 ml 50 ml Output Urine Total 4 ml # Voids 2 3 # Bowel Movements 0 0 Laboratory Date/Time Source Procedure Growth Status 01/03/18 21:40 Blood Peripheral Aerobic Blood Culture - Preliminary NO GROWTH IN 1 DAY Resulted 01/03/18 21:40 Blood Peripheral Anaerobic Blood Culture - Preliminary NO GROWTH IN 1 DAY Resulted Imaging Last Impressions Hepatobiliary Scan Nuclear Medicine 01/04/18 0000 Signed Impressions: CONCLUSION: 1. Normal gallbladder uptake. 2. Poor ejection fraction. Gall Bladder Ultrasound 01/04/18 0000 Signed Impressions: CONCLUSION: 1. Multiple gallstones measuring up to 7 mm in diameter. No biliary ductal dil atation. Fatty liver. No free fluid. Pancreas not well visualized. Cholangiopancreatography MRI 01/03/18 0000 Signed Impressions: CONCLUSION: 1. Cholelithiasis. No evidence of common duct stone Chest X-Ray 01/03/18 0000 Signed Impressions: CONCLUSION: Minimal atelectasis or consolidation at the lateral left base. Questionable density in the medial right upper lung. This could be further eval uated with a CT examination the chest. Physical Exam HEENT:normocephalic; atraumatic; no jaundice. Answering simple questions NECK: Supple CHEST: Even, unlabored CARDIAC: Regular rate and rhythm ABDOMEN: Round, soft, nondistended, nontender; no hepatosplenomegaly; bowel sounds are present in all four quadrants. EXTREMITIES: No lower extremity edema. 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 (Maryan Vidal) Assessment and Plan Plan - Acute pancreatitis - Unknown etiology, ? gall bladder or gastric ulcer. CT scan of the abdomen/pelvis which by report revealed acute pancreatitis of the tail the pancreas and cholelithiasis. Patient denies EtOH use. No new medications. States, he takes 2 Advil at night to help with sleep for long time. No previous hx of pancreatitis. Labs revealed leukocytosis, normal LFTs and normal Lipase. Last EGD/ colonoscopy by report about 3 yrs ago. MRCP done, no evidence of CBD stones. Pt is comfortable in bed, pain is better. - BPH, cholelithiasis, chronic kidney disease stage II, diabetes mellitus, hypertension, hyperlipidemia per attending 01/05/2018 patient had HIDA scan which showed low ejection fraction but normal uptake. Ultrasound of the gallbladder showed multiple gallstones measuring up to 7 mm in diameter but no biliary ductal dilation and no free fluid. Acute pancreatitis could be related to low EF with gallbladder. Currently patient is feeling better and has no further nausea vomiting or abdominal pain. Patient is fairly anxious to discharge and be able to travel Saturday to a family wedding. Supportive care given Plan: Diet, will increase to full liquids for toleration Pt might need EGD/EUS but can be done as an OP Avoid NSAIDs Monitor her labs Supportive care Antiemetics Encourage patient to ambulate and be up in room - Pt seen and examined by Dr. Valadez and myself and this note is written on her behalf. (Maryan Vidal) Physician Comments seen, examined agree with above clinically improved general surgery eval for possible cholecystectomy -can be done op if stable ok to dc home today low fat diet, avoid etoh (Norma Valadez MD) Maryan Vidal Jan 05, 2018 11:01 Norma Valadez MD Jan 05, 2018 12:12
[2018-01-05] MEDS ORDERED: AUGM875T3 PO (13:11)
--- NOTE | 2018-01-05 14:06 | HHI.PR ---
Subjective Remarks Pt denies abdominal pain. Pt denies n/v. Pt denies fever. Pt c/o several episodes of watery diarrhea. Objective Vitals Vital Signs Date Time Temp Pulse Resp B/P (MAP) Pulse Ox O2 Delivery O2 Flow Rate FiO2 01/05/18 12:00 97.9 80 17 120/68 (85) 97 01/05/18 08:00 98.1 79 17 156/73 (100) 96 01/05/18 04:29 98.6 79 18 147/67 (93) 97 01/05/18 04:00 108 01/05/18 00:05 99.5 86 18 133/61 (85) 96 01/05/18 00:00 83 01/04/18 20:22 98.8 79 18 160/77 (104) 97 01/04/18 20:00 79 01/04/18 16:00 97.2 87 19 129/88 (102) 98 Result Diagram: 01/04/18 0535 01/04/18 0535 Imaging Last Impressions Hepatobiliary Scan Nuclear Medicine 01/04/18 0000 Signed Impressions: CONCLUSION: 1. Normal gallbladder uptake. 2. Poor ejection fraction. Gall Bladder Ultrasound 01/04/18 0000 Signed Impressions: CONCLUSION: 1. Multiple gallstones measuring up to 7 mm in diameter. No biliary ductal dil atation. Fatty liver. No free fluid. Pancreas not well visualized. Cholangiopancreatography MRI 01/03/18 0000 Signed Impressions: CONCLUSION: 1. Cholelithiasis. No evidence of common duct stone Chest X-Ray 01/03/18 Signed Impressions: CONCLUSION: Minimal atelectasis or consolidation at the lateral left base. Questionable density in the medial right upper lung. This could be further eval uated with a CT examination the chest. Objective Remarks GENERAL: This is a well-nourished, well-developed patient, in no apparent distress. CARDIOVASCULAR: Regular rate and rhythm without murmurs, gallops, or rubs. RESPIRATORY: Clear to auscultation. Breath sounds equal bilaterally. No wheezes , rales, or rhonchi. GASTROINTESTINAL: Abdomen soft, non-tender, nondistended. Normal active bowel sounds MUSCULOSKELETAL: Extremities without clubbing, cyanosis, or edema. NEURO: Alert & Oriented x4 to person, place, time, situation. Moves all ext x4 A/P Problem List: (1) Abdominal pain ICD Codes: R10.9 - Unspecified abdominal pain Plan: Pancreatitis Cholelithiasis - comgmt with GI - CT scan of the abdomen/pelvis (01/03) at [facility] which per PCPs note revealed acute pancreatitis of the tail the pancreas and also cholelithiasis. - MRCP (01/04) --> no acute findings - HIDA (01/04) --> EF 15% - GB US (01/04) --> multiple gallstone, no ductal dilation - lipase 148 (01/03) - CRP 19 (01/03) - calcium 8.6 - clear diet after GB US - cholecystitis? - IV Zosyn (01/03 - 01/05) - Blood Cx (01/03) --> NGTD - SCDs for DVT prophylaxis - Pt c/o several episodes of watery diarrhea - obtain C. Dif screening - stop zosyn - No clear etiology for fever identified. Biliary etiology? - advance diet - if C. Dif negative, diarrhea improves, then anticipate d/c to home 01/06 - Pt can f/u with General Surgery outpt for consideration of cholecystectomy. (2) Diabetes mellitus ICD Codes: E11.9 - Type 2 diabetes mellitus without complications Status: Chronic Plan: - diet controlled - SSI (3) Hypertension ICD Codes: I10 - Essential (primary) hypertension Plan: - resumed home amlodipine 5 mg p.o. daily - likely will resume 01/05 lisinopril 20 mg daily Monitor BP Hydralazine 10 mg IV as needed for HTN (4) BPH (benign prostatic hyperplasia) ICD Codes: N40.0 - Benign prostatic hyperplasia without lower urinary tract symptoms Status: Chronic Plan: - resume flomax Problem Qualifiers (1) Abdominal pain: Qualified Codes: R10.13 - Epigastric pain (2) Diabetes mellitus: Riley Bradshaw DO Jan 05, 2018 14:06
[2018-01-05] MEDS: TAMSULOSIN HCL 0.4 MG CAP PO SCH (19:50)
[2018-01-06 00:06] VITALS: PULSE 74
[2018-01-06 00:09] VITALS: BP 141/68; PULSE 80; RESP 20; TEMP 99.9; O2SAT 97
[2018-01-06 04:25] VITALS: PULSE 73
[2018-01-06 04:32] VITALS: BP 157/74; PULSE 81; RESP 18; TEMP 97.9; O2SAT 96
[2018-01-06] MEDS: 1/2 NS + KCL 20 MEQ INJ 1,000 ML IV SCH (05:15)
[2018-01-06 07:38] LABS: AUTOMATED NEUTROPHIL # 6.1 TH/MM3 (1.8-7.7); BASOPHIL # 0.1 TH/MM3 (0-0.2); BASOPHIL % 1.1 % (0.0-2.0); EOSINOPHIL # 0.3 TH/MM3 (0-0.4); EOSINOPHIL % 3.5 % (0.0-4.0); HEMATOCRIT 38.9 % (39.0-51.0); HEMOGLOBIN 13.2 GM/DL (13.0-17.0); LYMPH % 20.3 % (9.0-44.0); LYMPHOCYTE # 1.8 TH/MM3 (1.0-4.8); MEAN CELL VOLUME 90.9 FL (80.0-100.0); MEAN CORPUSCULAR HEMOGLOBIN 30.9 PG (27.0-34.0); MEAN PLATELET VOLUME 7.6 FL (7.0-11.0); MONO % 5.2 % (0.0-8.0); MONOCYTE # 0.5 TH/MM3 (0-0.9); NEUT % 69.9 % (16.0-70.0); PLATELET COUNT 289 TH/MM3 (150-450); RED BLOOD COUNT 4.27 MIL/MM3 (4.50-5.90); RED CELL DISTRIBUTION WIDTH 13.3 % (11.6-17.2); WHITE BLOOD COUNT 8.7 TH/MM3 (4.0-11.0)
[2018-01-06 08:00] VITALS: BP 137/80; PULSE 66; RESP 20; TEMP 98; O2SAT 97
[2018-01-06] MEDS: INSULIN ASPART SUPPLEMENTAL SCALE SQ SCH (08:00)
[2018-01-06] MEDS: SODIUM CHLORIDE 0.9% FLUSH 10 ML FLUSH IV FLUSH SCH (08:45)
[2018-01-06] MEDS: amLODIPine BESYLATE 5 MG TAB PO SCH (08:45)
--- NOTE | 2018-01-06 08:50 | HHI.DCPOC ---
Discharge Care Plan Diagnosis: (1) Pancreatitis, acute (2) Abdominal pain (3) Diabetes mellitus (4) BPH (benign prostatic hyperplasia) (5) Abnormal CXR (6) Hypertension Goals to Promote Your Health * To prevent worsening of your condition and complications * To maintain your health at the optimal level Directions to Meet Your Goals Take your medications as prescribed Follow your dietary instruction Follow activity as directed Keep your appointments as scheduled Take your immunizations and boosters as scheduled If your symptoms worsen call your PCP, if no PCP go to Urgent Care Center or Emergency Room Smoking is Dangerous to Your Health. Avoid second hand smoke Call the 24-hour hour crisis hotline for domestic abuse at Claudia Manjarrez Jan 06, 2018 08:50
--- NOTE | 2018-01-06 08:57 | HHI.GIFU ---
Subjective Remarks Pt is sitting in chair, doing good, wants to go home, no nausea, no vomiting or abd pain. Had some diarrhea over the weekend but stool were negative for c- diff. Not having diarrhea today (Carmela Meza) Objective Vitals I&O Vital Signs Date Time Temp Pulse Resp B/P (MAP) Pulse Ox O2 Delivery O2 Flow Rate FiO2 01/06/18 04:32 97.9 81 18 157/74 (101) 96 01/06/18 04:25 73 01/06/18 00:09 99.9 80 20 141/68 (92) 97 01/06/18 00:06 74 01/05/18 20:41 97.8 79 18 164/72 (102) 97 01/05/18 20:03 81 01/05/18 16:00 97.9 74 17 157/75 (102) 97 01/05/18 12:00 97.9 80 17 120/68 (85) 97 I/O 01/05/18 01/05/18 01/05/18 01/06/18 01/06/18 01/06/18 07:00 15:00 23:00 07:00 15:00 23:00 Intake Total 630 ml 1050 ml 0 ml 1580 ml Balance 630 ml 1050 ml 0 ml 1580 ml Intake Oral 580 ml 0 ml 580 ml IV Total 50 ml 1050 ml 1000 ml # Voids 3 4 6 # Bowel Movements 4 1 Laboratory Laboratory Tests Test 01/05/18 16:26 01/06/18 07:20 Stool C. difficile Toxin (PCR) NEGATIVE Stl C. difficile Toxin Epiderm 027 PRESUMPTIVE NEGATIVE White Blood Count 8.7 Red Blood Count 4.27 Hemoglobin 13.2 Hematocrit 38.9 Mean Corpuscular Volume 90.9 Mean Corpuscular Hemoglobin 30.9 Mean Corpuscular Hemoglobin Concent 34.0 Red Cell Distribution Width 13.3 Platelet Count 289 Mean Platelet Volume 7.6 Neutrophils (%) (Auto) 69.9 Lymphocytes (%) (Auto) 20.3 Monocytes (%) (Auto) 5.2 Eosinophils (%) (Auto) 3.5 Basophils (%) (Auto) 1.1 Neutrophils # (Auto) 6.1 Lymphocytes # (Auto) 1.8 Monocytes # (Auto) 0.5 Eosinophils # (Auto) 0.3 Basophils # (Auto) 0.1 CBC Comment DIFF FINAL Differential Comment Date/Time Source Procedure Growth Status 01/03/18 21:40 Blood Peripheral Aerobic Blood Culture - Preliminary NO GROWTH IN 2 DAYS Resulted 01/03/18 21:40 Blood Peripheral Anaerobic Blood Culture - Preliminary NO GROWTH IN 2 DAYS Resulted Imaging Last Impressions Hepatobiliary Scan Nuclear Medicine 01/04/18 Signed Impressions: CONCLUSION: 1. Normal gallbladder uptake. 2. Poor ejection fraction. Gall Bladder Ultrasound 01/04/18 Signed Impressions: CONCLUSION: 1. Multiple gallstones measuring up to 7 mm in diameter. No biliary ductal dil atation. Fatty liver. No free fluid. Pancreas not well visualized. Cholangiopancreatography MRI 01/03/18 Signed Impressions: CONCLUSION: 1. Cholelithiasis. No evidence of common duct stone Chest X-Ray 01/03/18 Signed Impressions: CONCLUSION: Minimal atelectasis or consolidation at the lateral left base. Questionable density in the medial right upper lung. This could be further eval uated with a CT examination the chest. Physical Exam HEENT:normocephalic; atraumatic; no jaundice. Answering simple questions NECK: Supple CHEST: Even, unlabored CARDIAC: Regular rate and rhythm ABDOMEN: Round, soft, nondistended, nontender; no hepatosplenomegaly; bowel sounds are present in all four quadrants. EXTREMITIES: No lower extremity edema. SKIN: No rashes RUG SHAMPOOER: No focal deficits; alert and oriented times three. (Carmela Meza) Assessment and Plan Plan - Acute pancreatitis - Unknown etiology, ? gall bladder or gastric ulcer. CT scan of the abdomen/pelvis which by report revealed acute pancreatitis of the tail the pancreas and cholelithiasis. Patient denies EtOH use. No new medications. States, he takes 2 Advil at night to help with sleep for long time. No previous hx of pancreatitis. Labs revealed leukocytosis, normal LFTs and normal Lipase. Last EGD/ colonoscopy by report about 3 yrs ago. MRCP done, no evidence of CBD stones. Pt is comfortable in bed, pain is better. - BPH, cholelithiasis, chronic kidney disease stage II, diabetes mellitus, hypertension, hyperlipidemia per attending 01/05/2018 patient had HIDA scan which showed low ejection fraction but normal uptake. Ultrasound of the gallbladder showed multiple gallstones measuring up to 7 mm in diameter but no biliary ductal dilation and no free fluid. Acute pancreatitis could be related to low EF with gallbladder. Currently patient is feeling better and has no further nausea vomiting or abdominal pain. Patient is fairly anxious to discharge and be able to travel Saturday to a family wedding. Supportive care given 01/06/18 Patient doing good today, not having diarrhea any more, no nausea or vomiting, no abd pain, labs wnl Tolerating diet okay Plan: Low fat diet GS as an op for possible cholecystectomy Pt might need EGD/EUS but can be done as an OP Avoid NSAIDs Ok to DC from GI stand point - Pt seen and examined by Dr. Valadez and myself and this note is written on her behalf. (Carmela Meza) Carmela Meza Jan 06, 2018 08:57 Norma Valadez MD Jan 06, 2018 21:20
--- NOTE | 2018-01-06 08:57 | HHI.DS ---
Discharge Summary Admission Date Jan 03, 2018 at 17:06 Discharge Date: Jan 06, 2018 Admitting Diagnosis pancreatitis (1) Abdominal pain ICD Codes: R10.9 - Unspecified abdominal pain (2) Diabetes mellitus ICD Codes: E11.9 - Type 2 diabetes mellitus without complications Status: Chronic (3) Hypertension ICD Codes: I10 - Essential (primary) hypertension (4) BPH (benign prostatic hyperplasia) ICD Codes: N40.0 - Benign prostatic hyperplasia without lower urinary tract symptoms Status: Chronic Consultants Dr. Valadez, GI Procedures None Brief History This is a 77-year-old male patient with past medical history which includes BPH , cholelithiasis without obstruction, chronic kidney disease stage II, diabetes mellitus, diverticulosis, hypertension, hyperlipidemia and lumbar radiculopathy. Patient initially presented to his PCP office with complaints of mid abdominal pain 3 days. The abdominal pain was described as a dull ache and occasional cramping. Patient had associated nausea and occasional vomiting only after eating but no diarrhea. Patient also reports associated fever up to 101.6 at home. Patient was sent to [facility] for outpatient CT scan of the abdomen/pelvis which per PCPs note revealed acute pancreatitis of the tail the pancreas and also cholelithiasis. Patient was then instructed to proceed to the emergency department for further evaluation and treatment. Patient denies EtOH use. Patient denies chest pain or shortness of breath. CBC/BMP: 01/06/18 0720 01/04/18 0535 Significant Findings Laboratory Tests Test 01/03/18 15:10 01/03/18 17:20 01/03/18 21:40 01/04/18 05:35 White Blood Count 14.8 TH/MM3 (4.0-11.0) 11.4 TH/MM3 (4.0-11.0) Neutrophils (%) (Auto) 80.9 % (16.0-70.0) 72.7 % (16.0-70.0) Neutrophils # (Auto) 12.0 TH/MM3 (1.8-7.7) 8.3 TH/MM3 (1.8-7.7) Blood Urea Nitrogen 19 MG/DL (7-18) Random Glucose 112 MG/DL (74-106) 114 MG/DL (74-106) Aspartate Amino Transf (AST/SGOT) 12 U/L (15-37) 14 U/L (15-37) Estimat Glomerular Filtration Rate 53 ML/MIN (>89) 57 ML/MIN (>89) C-Reactive Protein 19.00 MG/DL (0.00-0.30) Triglycerides Level 196 MG/DL (42-150) Urine Turbidity HAZY (CLEAR) Urine Ketones TRACE mg/dL (NEG) Urine Leukocyte Esterase TRACE (NEG) Urine Bacteria OCC /hpf (NONE) Urine Mucus FEW /lpf (OCC) Red Blood Count 3.98 MIL/MM3 (4.50-5.90) Hemoglobin 12.0 GM/DL (13.0-17.0) Hematocrit 35.8 % (39.0-51.0) Albumin 2.9 GM/DL (3.4-5.0) Chloride Level 108 MEQ/L (98-107) Test 01/05/18 16:26 01/06/18 07:20 Red Blood Count 4.27 MIL/MM3 (4.50-5.90) Hematocrit 38.9 % (39.0-51.0) Imaging Last Impressions Hepatobiliary Scan Nuclear Medicine 01/04/18 Signed Impressions: CONCLUSION: 1. Normal gallbladder uptake. 2. Poor ejection fraction. Gall Bladder Ultrasound 01/04/18 Signed Impressions: CONCLUSION: 1. Multiple gallstones measuring up to 7 mm in diameter. No biliary ductal dil atation. Fatty liver. No free fluid. Pancreas not well visualized. Cholangiopancreatography MRI 01/03/18 Signed Impressions: CONCLUSION: 1. Cholelithiasis. No evidence of common duct stone Chest X-Ray 01/03/18 Signed Impressions: CONCLUSION: Minimal atelectasis or consolidation at the lateral left base. Questionable density in the medial right upper lung. This could be further eval uated with a CT examination the chest. PE at Discharge GENERAL: This is a well-nourished, well-developed patient, in no apparent distress. CARDIOVASCULAR: Regular rate and rhythm without murmurs, gallops, or rubs. RESPIRATORY: Clear to auscultation. Breath sounds equal bilaterally. No wheezes , rales, or rhonchi. GASTROINTESTINAL: Abdomen soft, non-tender, nondistended. Normal active bowel sounds MUSCULOSKELETAL: Extremities without clubbing, cyanosis, or edema. NEURO: Alert & Oriented x4 to person, place, time, situation. Moves all ext x4 Hospital Course Abdominal pain Pancreatitis Cholelithiasis - comgmt with GI - CT scan of the abdomen/pelvis (01/03) at [facility] which per PCPs note revealed acute pancreatitis of the tail the pancreas and also cholelithiasis. - MRCP (01/04) --> no acute findings - HIDA (01/04) --> EF 15% - GB US (01/04) --> multiple gallstone, no ductal dilation - lipase 148 (01/03) - CRP 19 (01/03) - calcium 8.6 - cholecystitis? - IV Zosyn (01/03 - 01/05) - Blood Cx (01/03) --> NGTD - SCDs for DVT prophylaxis - (01/05) Pt c/o several episodes of watery diarrhea - C. Dif negative - stop zosyn - No clear etiology for fever identified. Biliary etiology? - patient plans to leave for a trip to [place] on Saturday. Patient given prescriptions for Levaquin 500 mg PO daily x 7 days and Flagyl 500 mg PO TID for 7 days, if blair develops fevers - advance diet - Pt can f/u with General Surgery outpt for consideration of cholecystectomy. Diabetes mellitus - diet controlled - SSI Hypertension - resumed home amlodipine 5 mg p.o. daily - likely will resume 01/05 lisinopril 20 mg daily Monitor BP Hydralazine 10 mg IV as needed for HTN BPH (benign prostatic hyperplasia) - resume flomax Abnormal CXR CXR 01/03/18 revealed Minimal atelectasis or consolidation at the lateral left base. Questionable density in the medial right upper lung. This could be further evaluated with CT examination of the chest CT chest with cntrast ordered 01/04, patient refused. CXR results, need for follow up CT to further evaluate area for possible etiology including the possibility of cancer explained to patient. Patient verbalized understanding and continued to refuse inpatient CT scan. Patient will need an outpatient CT in 3 months. Pt Condition on Discharge: Stable Discharge Disposition: Discharge Home Discharge Instructions DIET: Follow Instructions for: Heart Healthy Diet, Low Fat Diet Activities you can perform: Regular-No Restrictions Follow up Referrals: Gastroenterology - 2 Weeks with Norma Valadez MD PCP Follow-up - [address] [facility] - 2 Weeks with Butch Dorsey MD New Orders: CT THORAX W CONTRAST (CHEST) - 3 Months New Medications: Levofloxacin (Levaquin) 500 Mg Tablet 500 MG PO DAILY for Infection for 7 Days, #7 TAB 0 Refills Metronidazole (Flagyl) 500 Mg Tab 500 MG PO TID for Infection for 7 Days, TAB 0 Refills Continued Medications: Allopurinol (Allopurinol) 100 Mg Tab 100 MG PO BID PRN for SBP>200, DBP>100, #30 TAB 0 Refills Amlodipine (Amlodipine) 5 Mg Tab 5 MG PO DAILY for Blood Pressure Management, #30 TAB 0 Refills Lisinopril (Lisinopril) 20 Mg Tab 20 MG PO DAILY, #30 TAB 0 Refills Tamsulosin (Flomax) 0.4 Mg Cap 0.4 MG PO HS for Manage Prostate Problems, #30 CAP 0 Refills Claudia Manjarrez Jan 06, 2018 08:57 Matthias Hernandez MD Jan 06, 2018 13:51
[2018-01-06] MEDS ORDERED: LISINOPRIL 20 MG TAB PO SCH (09:00)
[2018-01-06 12:00] VITALS: BP 131/62; PULSE 75; RESP 20; TEMP 97.4; O2SAT 97
[2018-01-06] MEDS ORDERED: METR-1 PO (12:27)
[2018-01-06] MEDS ORDERED: LEVA500T33 PO (12:27)
== END 2018-01-06 13:49 | disposition home or self-care (01) | DRG 440 ==
LOC: NEPE 13:55 → NEDA 17:06 → N07B 19:53
PROVIDERS: ADMIT Hospitalist; ATTEND Hospitalist
DX: K85.90 Acute pancreatitis without necrosis or infection, unspecified (principal); E11.22 Type 2 diabetes mellitus with diabetic chronic kidney disease; K76.0 Fatty (change of) liver, not elsewhere classified; I12.9 Hypertensive chronic kidney disease with stage 1 through stage 4 chronic kidney disease, or unspecified chronic kidney disease; N18.2 Chronic kidney disease, stage 2 (mild); K80.20 Calculus of gallbladder without cholecystitis without obstruction; R19.7 Diarrhea, unspecified; M54.16 Radiculopathy, lumbar region; E78.5 Hyperlipidemia, unspecified; N40.0 Benign prostatic hyperplasia without lower urinary tract symptoms; Z87.891 Personal history of nicotine dependence
CPT/HCPCS: 71045; 74181; 76377; 76705; 78227; 80048; 80053; 80076; 81001; 82330; 82948; 83690; 84478; 85025; 86140; 87040; 87493; 96361; 96374; A9537; J0131; J2270; J2543; J2765; J2805; J7030